=== PATIENT | male | born 2000 | race Caucasian/White ===

== ENCOUNTER 2021-11-03 14:01 | Emergency (ER) | payer OTHER, BC ==
[2021-11-03] MEDS ORDERED: Boostrix 0.5 ML (Tdap) VIAL ONE (14:38)
[2021-11-03] MEDS ORDERED: Ketorolac Tromethamine 30 MG/ML VIAL ONE (14:38)
== END 2021-11-03 15:27 | disposition home or self-care (01) ==
LOC: NAV ERS 14:01
DX: S43.51XA Sprain of right acromioclavicular joint, initial encounter (principal); S30.811A Abrasion of abdominal wall, initial encounter; V29.9XXA Motorcycle rider (driver) (passenger) injured in unspecified traffic accident, initial encounter; Z23 Encounter for immunization
CPT/HCPCS: 90471; 90715; 96372; J1885